=== PATIENT | male | born 1990 | race Caucasian/White ===

== ENCOUNTER 2017-03-29 14:12 | Emergency (ER) | payer SELFPAY ==
[2017-03-29 14:28] VITALS: BP 128/80
[2017-03-29] MEDS ORDERED: Sodium Chloride 0.9% 2.5 ML Syringe FLUSH PRN (14:40)
[2017-03-29] MEDS ORDERED: Ketorolac 30 MG/ML SDV IVPUSH ONE (14:40)
[2017-03-29] MEDS ORDERED: Sodium Chloride 0.9% 10 ML Syringe FLUSH PRN (14:40)
[2017-03-29] MEDS ORDERED: Sodium Chloride 0.9% 1,000 ML IV ONE (14:40)
[2017-03-29] MEDS ORDERED: Ondansetron 4 MG/2 ML SDV IVPUSH ONE (14:40)
--- NOTE | 2017-03-29 14:52 | EDM.PDOC ---
ED HPI GENERAL MEDICAL PROBLEM - General Chief Complaint: Abdominal Pain Stated Complaint: RT SIDE HURTS Time Seen by Provider: 03/29/17 14:23 - History of Present Illness INITIAL COMMENTS - FREE TEXT/NARRATIVE: HISTORY AND PHYSICAL: History of present illness: The patient is a healthy 27-year-old male with no GI history and no abdominal surgical history who presents with onset of left lower quadrant pain that started at 9:00 last evening. The patient says he has a history of constipation and only has a bowel movement once a week which is his norm he's never had black or bloody stools. He has no history of GI problems nor does his family have any bowel history. He said he had a normal day yesterday and normally eats on the go and was having a normal evening when the pain started. He said it was sharp and localized left lower abdomen and did not radiate. He did not have any nausea vomiting or diarrhea at this time but he did not eat much afterwards and this morning he woke up and had several episodes of watery diarrhea which had stool with some blood in it but was not grossly bloody or black and also had vomiting which was clear with some food particles and then had streaks of blood but not grossly black or bloody. The patient says that he has no right-sided abdominal pain no upper abdominal pain and did not take any [id number] medications for this problem. He has not had anything to eat or drink today due to these issues. Patient has not had a fever or upper respiratory symptoms and has no urinary complaints Review of systems: As per history of present illness and below otherwise all systems reviewed and negative. Past medical history: As per history of present illness and as reviewed below otherwise noncontributory. Surgical history: As per history of present illness and as reviewed below otherwise noncontributory. Social history: No reported history of drug or alcohol abuse. Family history: As per history of present illness and as reviewed below otherwise noncontributory. Physical exam: Gen.: Well-developed well-nourished thin man who is nontoxic and vital signs have been reviewed by me. He is laying supine and taxing on the telephone without overt distress HEENT: Atraumatic, normocephalic, negative for conjunctival pallor or scleral icterus, mucous membranes very tacky, throat clear, neck supple, nontender, trachea midline. Lungs: Clear to auscultation, breath sounds equal bilaterally, chest nontender. Heart: S1S2, regular, negative for clicks, rubs, or JVD. Abdomen: Soft, nondistended, he has hypoactive bowel sounds but his abdomen is scaphoid. He has tympany on percussion throughout the abdomen without rebound or guarding. There is moderate tenderness on palpation in the left lower quadrant without right-sided tenderness. Negative for masses or hepatosplenomegaly. Negative for costovertebral tenderness. Pelvis: Stable nontender. Genitourinary: Deferred. Rectal: Deferred. Extremities: Atraumatic, negative for cords or calf pain. Neurovascular unremarkable. Neuro: Awake, alert, oriented. Cranial nerves II through XII unremarkable. Cerebellum unremarkable. Motor and sensory unremarkable throughout. Exam nonfocal. Diagnostics: CBC CMP amylase lipase UA CT scan of the abdomen and pelvis Therapeutics: IVF fluids Zofran Toradol Patient feels much improved here and has had no nausea vomiting or diarrhea since arrival. I discussed with him all of his testing findings and the need of [id number] gas preps to relinquish some of his gas and I will prescribe him Zofran and Bentyl as well for his current symptoms. I've advised close monitoring of his symptoms and follow-up in our clinic for reevaluation and further care. Impression: Left lower abdominal pain/diarrhea/vomiting improved Definitive disposition and diagnosis as appropriate pending reevaluation and review of above. left flank and lower quad abd Pain Score (Numeric/FACES): 8 - Related Data Allergies Allergy/AdvReac Type Severity Reaction Status Date / Time No Known Allergies Allergy Verified 03/29/17 14:26 Home Meds: Home Meds . [No Known Home Meds] 08/29/14 [History] Past Medical History - Past Health History Medical/Surgical History: Denies Medical/Surgical History Other Neuro History: pt reports history of a one time seizure in 2012. pt did not follow up and has had no further incidence. Social & Family History - Family History Family Medical History: Noncontributory - Tobacco Use Smoking Status *Q: Current Every Day Smoker Years of Tobacco use: 7 Packs/Tins Daily: 1 - Alcohol Use Days Per Week of Alcohol Use: 7 Number of Drinks Per Day: 18 Total Drinks Per Week: 126 - Recreational Drug Use Recreational Drug Use: No ED ROS GENERAL - Review of Systems Review Of Systems: ROS reveals no pertinent complaints other than HPI. ED EXAM, GENERAL - Physical Exam Exam: See Below (see dictation) Course - Vital Signs Last Recorded V/S: Last Vital Signs Temp 36.8 C 03/29/17 14:26 Pulse 102 H 03/29/17 14:26 Resp 18 03/29/17 14:26 BP 128/80 03/29/17 14:26 Pulse Ox 100 03/29/17 14:26 - Orders/Labs/Meds Orders: Active Orders 24 hr Category Date Time Status Communication Order [RC] STAT Care 03/29/17 14:39 Active Sodium Chloride 0.9% [Saline Flush] Med 03/29/17 14:40 Active 10 ml FLUSH ASDIRECTED PRN Sodium Chloride 0.9% [Saline Flush] Med 03/29/17 14:40 Active 2.5 ml FLUSH ASDIRECTED PRN Saline Lock Insert [OM.PC] Stat Oth 03/29/17 14:39 Ordered Medication Orders Sodium Chloride (Saline Flush) 10 ml FLUSH ASDIRECTED PRN PRN Reason: Keep Vein Open Last Admin: 03/29/17 14:48 Dose: 10 ml Sodium Chloride (Saline Flush) 2.5 ml FLUSH ASDIRECTED PRN PRN Reason: Keep Vein Open Last Admin: 03/29/17 14:48 Dose: 2.5 ml Labs: Laboratory Tests 03/29/17 03/29/17 03/29/17 Range/Units 14:25 14:25 14:25 WBC 11.84 H (4.0-11.0) K/uL RBC 5.44 (4.50-5.90) M/uL Hgb 16.7 (13.0-17.0) g/dL Hct 49.7 (38.0-50.0) % MCV 91.4 (80.0-98.0) fL MCH 30.7 (27.0-32.0) pg MCHC 33.6 (31.0-37.0) g/dL RDW Std Deviation 46.9 (28.0-62.0) fl RDW Coeff of Hi 14 (11.0-15.0) % Plt Count 243 (150-400) K/uL MPV 9.50 (7.40-12.00) fL Neut % (Auto) 76.6 (48.0-80.0) % Lymph % (Auto) 14.1 L (16.0-40.0) % [place] % (Auto) 7.7 (0.0-15.0) % Eos % (Auto) 1.4 (0.0-7.0) % Baso % (Auto) 0.2 (0.0-1.5) % Neut # (Auto) 9.1 H (1.4-5.7) K/uL Lymph # (Auto) 1.7 (0.6-2.4) K/uL [place] # (Auto) 0.9 H (0.0-0.8) K/uL Eos # (Auto) 0.2 (0.0-0.7) K/uL Baso # (Auto) 0.0 (0.0-0.1) K/uL Nucleated RBC % 0.0 /100WBC Nucleated RBCs # 0 K/uL Sodium 138 (136-146) mmol/L Potassium 4.5 (3.5-5.1) mmol/L Chloride 102 (98-110) mmol/L Carbon Dioxide 28 (21-31) mmol/L BUN 16 (6.0-23.0) mg/dL Creatinine 1.1 (0.6-1.5) mg/dL Est Cr Clr Drug Dosing 97.93 mL/min Estimated GFR (MDRD) > 60.0 ml/min Glucose 84 (60-110) mg/dL Calcium 10.0 (8.8-10.8) mg/dL Total Bilirubin 0.5 (0.1-1.5) mg/dL AST 16 (5-40) IU/L ALT 17 (8-54) IU/L Alkaline Phosphatase 82 (40-150) Total Protein 7.6 (6.0-8.0) g/dL Albumin 4.5 (3.5-5.0) g/dL Globulin 3.1 (2.0-3.5) g/dL Albumin/Globulin Ratio 1.5 (1.3-2.8) Amylase 61 (10-90) U/L Lipase 15 (7-80) U/L Urine Color Urine Appearance Urine pH (5.0-8.0) Ur Specific [place] (1.001-1.035) Urine Protein (NEGATIVE) mg/dL Urine Glucose (UA) (NEGATIVE) mg/dL Urine Ketones (NEGATIVE) mg/dL Urine Occult Blood (NEGATIVE) Urine Nitrite (NEGATIVE) Urine Bilirubin (NEGATIVE) Urine Urobilinogen (<2.0) EU/dL Ur Leukocyte Esterase (NEGATIVE) Urine RBC (0-2/HPF) Urine WBC (0-5/HPF) Ur Epithelial Cells (NONE-FEW) Urine Bacteria (NEGATIVE) 03/29/17 Range/Units 14:28 WBC (4.0-11.0) K/uL RBC (4.50-5.90) M/uL Hgb (13.0-17.0) g/dL Hct (38.0-50.0) % MCV (80.0-98.0) fL MCH (27.0-32.0) pg MCHC (31.0-37.0) g/dL RDW Std Deviation (28.0-62.0) fl RDW Coeff of Hi (11.0-15.0) % Plt Count (150-400) K/uL MPV (7.40-12.00) fL Neut % (Auto) (48.0-80.0) % Lymph % (Auto) (16.0-40.0) % [place] % (Auto) (0.0-15.0) % Eos % (Auto) (0.0-7.0) % Baso % (Auto) (0.0-1.5) % Neut # (Auto) (1.4-5.7) K/uL Lymph # (Auto) (0.6-2.4) K/uL [place] # (Auto) (0.0-0.8) K/uL Eos # (Auto) (0.0-0.7) K/uL Baso # (Auto) (0.0-0.1) K/uL Nucleated RBC % /100WBC Nucleated RBCs # K/uL Sodium (136-146) mmol/L Potassium (3.5-5.1) mmol/L Chloride (98-110) mmol/L Carbon Dioxide (21-31) mmol/L BUN (6.0-23.0) mg/dL Creatinine (0.6-1.5) mg/dL Est Cr Clr Drug Dosing mL/min Estimated GFR (MDRD) ml/min Glucose (60-110) mg/dL Calcium (8.8-10.8) mg/dL Total Bilirubin (0.1-1.5) mg/dL AST (5-40) IU/L ALT (8-54) IU/L Alkaline Phosphatase (40-150) Total Protein (6.0-8.0) g/dL Albumin (3.5-5.0) g/dL Globulin (2.0-3.5) g/dL Albumin/Globulin Ratio (1.3-2.8) Amylase (10-90) U/L Lipase (7-80) U/L Urine Color YELLOW Urine Appearance CLEAR Urine pH 6.0 (5.0-8.0) Ur Specific [place] 1.025 (1.001-1.035) Urine Protein NEGATIVE (NEGATIVE) mg/dL Urine Glucose (UA) NEGATIVE (NEGATIVE) mg/dL Urine Ketones TRACE H (NEGATIVE) mg/dL Urine Occult Blood NEGATIVE (NEGATIVE) Urine Nitrite NEGATIVE (NEGATIVE) Urine Bilirubin NEGATIVE (NEGATIVE) Urine Urobilinogen 0.2 (<2.0) EU/dL Ur Leukocyte Esterase NEGATIVE (NEGATIVE) Urine RBC 1-2 (0-2/HPF) Urine WBC 1-2 (0-5/HPF) Ur Epithelial Cells OCCASIONAL (NONE-FEW) Urine Bacteria RARE (NEGATIVE) Meds: Medications Generic Name Dose Route Start Last Admin Trade Name [place] PRN Reason Stop Dose Admin Sodium Chloride 10 ml 03/29/17 14:40 03/29/17 14:48 Saline Flush FLUSH 10 ml ASDIRECTED PRN Administration Keep Vein Open Sodium Chloride 2.5 ml 03/29/17 14:40 03/29/17 14:48 Saline Flush FLUSH 2.5 ml ASDIRECTED PRN Administration Keep Vein Open Discontinued Medications Generic Name Dose Route Start Last Admin Trade Name Freq PRN Reason Stop Dose Admin Sodium Chloride 1,000 mls @ 999 mls/hr 03/29/17 14:40 03/29/17 14:47 Normal Saline IV 03/29/17 15:40 999 mls/hr STAT ONE Administration Iopamidol 100 ml 03/29/17 14:59 03/29/17 15:00 Isovue Multipack-370 (76%) IVPUSH 03/29/17 15:00 100 ml ONETIME STA Administration Ketorolac Tromethamine 30 mg 03/29/17 14:40 03/29/17 14:47 Toradol IVPUSH 03/29/17 14:41 30 mg ONETIME ONE Administration Ondansetron HCl 4 mg 03/29/17 14:40 03/29/17 14:47 Zofran IVPUSH 03/29/17 14:41 4 mg ONETIME ONE Administration Departure - Departure Time of Disposition: 16:28 Disposition: Home, Self-Care 01 Condition: Good Clinical Impression: Abdominal pain Qualifiers: Abdominal location: left lower quadrant Qualified Code(s): R10.32 - Left lower quadrant pain Diarrhea Qualifiers: Diarrhea type: unspecified type Qualified Code(s): R19.7 - Diarrhea, unspecified Vomiting Qualifiers: Vomiting type: unspecified Vomiting Intractability: non-intractable Nausea presence: with nausea Qualified Code(s): R11.2 - Nausea with vomiting, unspecified - Discharge Information Referrals: PCP,None [Primary Care Provider] - Forms: ED Department Discharge Additional Instructions: The following information is given to patients seen in the emergency department who are being discharged to home. This information is to outline your options for follow-up care. We provide all patients seen in our emergency department with a follow-up referral. The need for follow-up, as well as the timing and circumstances, are variable depending upon the specifics of your emergency department visit. If you don't have a primary care physician on staff, we will provide you with a referral. We always advise you to contact your personal physician following an emergency department visit to inform them of the circumstance of the visit and for follow-up with them and/or the need for any referrals to a consulting specialist. The emergency department will also refer you to a specialist when appropriate. This referral assures that you have the opportunity for followup care with a specialist. All of these measure are taken in an effort to provide you with optimal care, which includes your followup. Under all circumstances we always encourage you to contact your private physician who remains a resource for coordinating your care. When calling for followup care, please make the office aware that this follow-up is from your recent emergency room visit. If for any reason you are refused follow-up, please contact the [facility] emergency department at and ask to speak to the emergency department charge nurse. [facility] Primary care- Internal Medicine and Family [place] [id number] [place] [address] Push sips of fluids such as Gatorade and water and avoid caffeine and alcohol and fatty/fast foods. Please eat bland diet for the next 24 hours. Use over-the- counter gas preparation to assist with gastric retention and also use prescribed medications, Zofran and Bentyl, as needed. Return to ER as needed and as discussed. Please contact our clinic for follow-up appointment in the next few days for reevaluation and further care - My Orders Last 24 Hours: My Active Orders 03/29/17 14:39 Communication Order [RC] STAT Saline Lock Insert [OM.PC] Stat 03/29/17 14:40 Sodium Chloride 0.9% [Saline Flush] 10 ml FLUSH ASDIRECTED PRN Sodium Chloride 0.9% [Saline Flush] 2.5 ml FLUSH ASDIRECTED PRN - Assessment/Plan Last 24 Hours: My Active Orders 03/29/17 14:39 Communication Order [RC] STAT Saline Lock Insert [OM.PC] Stat 03/29/17 14:40 Sodium Chloride 0.9% [Saline Flush] 10 ml FLUSH ASDIRECTED PRN Sodium Chloride 0.9% [Saline Flush] 2.5 ml FLUSH ASDIRECTED PRN
[2017-03-29] MEDS ORDERED: Iopamidol 755 MG/ML 500 ML Multipack Bottle IVPUSH STA (14:59)
[2017-03-29 15:02] LABS: CHLORIDE,CL 102 mmol/L (98-110); SODIUM,NA 138 mmol/L (136-146)
--- NOTE | 2017-03-29 15:49 | CT ---
CT of the abdomen and pelvis with contrast. HISTORY: Pain TECHNIQUE: Axial CT images were obtained of the abdomen and pelvis following administration of 100 mL of Isovue-370 without complication. Coronal and sagittal reconstructions obtained. FINDINGS: The lung bases are clear, no pleural effusion. There is focal fatty infiltration near the falciform ligament. The spleen, adrenal glands, and pancre as appear normal. The gallbladder is normal. No bulky retroperitoneal lymphadenopathy or abdominal as cites. The kidneys enhance and function symmetrically without evidence of obstructive uropathy. Punctate non obstructing left renal stones. The large and small bowel are normal in caliber without evidence of obstruction. The appendix appear s normal. There is possibly a trace free pelvic fluid. No bulky pelvic lymphadenopathy. Urinary bladd er appears normal. IMPRESSION: 1. No definite acute finding within the abdomen or pelvis. 2. Possible nonspecific trace free pelvic fluid. 3. Punctate nonobstructing left nephrolithiasis.
== END 2017-03-29 16:38 | disposition home or self-care (01) ==
LOC: MW.ED 14:12
DX: R10.32 Left lower quadrant pain (principal); R19.7 Diarrhea, unspecified; R11.2 Nausea with vomiting, unspecified; F17.210 Nicotine dependence, cigarettes, uncomplicated
CPT/HCPCS: 74177; 80053; 81001; 82150; 83690; 85025; 96361; 96374; 99284; J1885; J2405; J7040; Q9967

== ENCOUNTER 2018-05-13 16:42 | Emergency (ER) | payer MEDICAID ==
--- NOTE | 2018-05-13 17:42 | EDM.PDOC ---
ED HPI GENERAL MEDICAL PROBLEM - General Chief Complaint: Genitourinary Problem Stated Complaint: STD CHECK Time Seen by Provider: 05/13/18 17:23 - History of Present Illness INITIAL COMMENTS - FREE TEXT/NARRATIVE: HISTORY AND PHYSICAL: History of present illness: Patient is a 28 year old who presents to the ED today with "wanting to be checked " for STDs. He states that his girlfriend is being checked so he would also like to be evaluated. Patient is asymptomatic. He denies any fever, chills , chest pain, shortness of breath or cough. Denies any GI or symptoms. Denies any testicular erythema, lesions or soft tissue swelling. Denies any penile drainage Review of systems: As per history of present illness and below otherwise all systems reviewed and negative. Past medical history: As per history of present illness and as reviewed below otherwise noncontributory. Surgical history: As per history of present illness and as reviewed below otherwise noncontributory. Social history: See social history for further information Family history: As per history of present illness and as reviewed below otherwise noncontributory. Physical exam: General: Patient is alert, oriented, and in no acute distress. He is sitting comfortably on exam table. HEENT: Atraumatic, normocephalic, pupils equal and reactive bilaterally, negative for conjunctival pallor or scleral icterus, mucous membranes moist, TMs normal bilaterally, throat clear, neck supple, nontender, trachea midline. No drooling or trismus noted. No meningeal signs. No hot potato voice noted. Lungs: Clear to auscultation, breath sounds equal bilaterally, chest nontender. Heart: S1S2, regular rate and rhythm without overt murmur Abdomen: Soft, nondistended, nontender. Negative for masses or hepatosplenomegaly. Negative for costovertebral tenderness. Pelvis: Stable nontender. Genitourinary: Deferred. Rectal: Deferred. Skin: Intact, warm, dry. No lesions or rashes noted. Extremities: Atraumatic, negative for cords or calf pain. Neurovascular unremarkable. Neuro: Awake, alert, oriented. Cranial nerves II through XII unremarkable. Cerebellum unremarkable. Motor and sensory unremarkable throughout. Exam nonfocal. Notes: Gonorrhea and may be were ordered. We will call patient with results on these return. He has no symptoms at this time. UA today is negative. We discussed empiric treatment versus waiting for results and he agrees to waiting for results to return for treatment. Supportive care measures were reviewed and discussed. Voices understanding and is agreeable to plan of care. Denies any further questions or concerns at this time. Did discuss that if patient does desire for STD screening to follow-up with [facility] in order to perform these tests. Proper number to call with results is [phone]. Diagnostics: Gonorrhea and chlamydia Therapeutics: none Prescription: none Impression: 1. Screening for sexually transmitted infection Plan: 1. The results of tests do not come back for a couple of days. In the meantime, refrain from sexual intercourse. 2. We will call you with the results 3. Follow-up with [facility] your primary care provider for full STD screening. Definitive disposition and diagnosis as appropriate pending reevaluation and review of above. - Related Data Allergies Allergy/AdvReac Type Severity Reaction Status Date / Time No Known Allergies Allergy Verified 05/13/18 17:20 Home Meds: Home Meds . [No Known Home Meds] 08/29/14 [History] Past Medical History - Past Health History Medical/Surgical History: Denies Medical/Surgical History Other Neuro History: pt reports history of a one time seizure in 2011. pt did not follow up and has had no further incidence. Social & Family History - Family History Family Medical History: Noncontributory - Tobacco Use Smoking Status *Q: Current Every Day Smoker Years of Tobacco use: 9 Packs/Tins Daily: 1 - Recreational Drug Use Recreational Drug Use: No ED ROS GENERAL - Review of Systems Review Of Systems: ROS reveals no pertinent complaints other than HPI. ED EXAM, GENERAL - Physical Exam Exam: See Below (See dictation) Course - Vital Signs Last Recorded V/S: Last Vital Signs Temp 98.6 F 05/13/18 17:18 Pulse 89 05/13/18 17:57 Resp 16 05/13/18 17:57 BP 128/79 05/13/18 17:57 Pulse Ox 97 05/13/18 17:57 - Orders/Labs/Meds Orders: Active Orders 24 hr Category Date Time Status CHLAMYDIA AND GONORRHEA BY TMA Stat Lab 05/13/18 17:25 Received Labs: Laboratory Tests 05/13/18 Range/Units 17:25 Urine Color YELLOW Urine Appearance CLEAR Urine pH 5.5 (5.0-8.0) Ur Specific [place] <= 1.005 (1.001-1.035) Urine Protein NEGATIVE (NEGATIVE) mg/dL Urine Glucose (UA) NEGATIVE (NEGATIVE) mg/dL Urine Ketones NEGATIVE (NEGATIVE) mg/dL Urine Occult Blood NEGATIVE (NEGATIVE) Urine Nitrite NEGATIVE (NEGATIVE) Urine Bilirubin NEGATIVE (NEGATIVE) Urine Urobilinogen 0.2 (<2.0) EU/dL Ur Leukocyte Esterase NEGATIVE (NEGATIVE) Departure - Departure Time of Disposition: 17:43 Disposition: Home, Self-Care 01 Clinical Impression: Screening for STD (sexually transmitted disease) - Discharge Information Instructions: Sexually Transmitted Disease, [id number] Referrals: PCP,None [Primary Care Provider] - Forms: ED Department Discharge Additional Instructions: The following information is given to patients seen in the emergency department who are being discharged to home. This information is to outline your options for follow-up care. We provide all patients seen in our emergency department with a follow-up referral. The need for follow-up, as well as the timing and circumstances, are variable depending upon the specifics of your emergency department visit. If you don't have a primary care physician on staff, we will provide you with a referral. We always advise you to contact your personal physician following an emergency department visit to inform them of the circumstance of the visit and for follow-up with them and/or the need for any referrals to a consulting specialist. The emergency department will also refer you to a specialist when appropriate. This referral assures that you have the opportunity for follow-up care with a specialist. All of these measure are taken in an effort to provide you with optimal care, which includes your follow-up. Under all circumstances we always encourage you to contact your private physician who remains a resource for coordinating your care. When calling for follow-up care, please make the office aware that this follow-up is from your recent emergency room visit. If for any reason you are refused follow-up, please contact the [facility] Emergency Department at and asked to speak to the emergency department charge nurse. [facility] Primary Care [address] [place] [id number] [facility] [address] [place] [address] 1. The results of tests do not come back for a couple of days. In the meantime, refrain from sexual intercourse. 2. We will call you with the results 3. Follow-up with [facility] your primary care provider for full STD screening. - My Orders Last 24 Hours: My Active Orders 05/13/18 17:25 CHLAMYDIA AND GONORRHEA BY TMA Stat - Assessment/Plan Last 24 Hours: My Active Orders 05/13/18 17:25 CHLAMYDIA AND GONORRHEA BY TMA Stat
[2018-05-13 17:57] VITALS: BP 128/79
== END 2018-05-13 17:57 | disposition home or self-care (01) ==
LOC: MW.ED 16:42
DX: Z11.3 Encounter for screening for infections with a predominantly sexual mode of transmission (principal); F17.210 Nicotine dependence, cigarettes, uncomplicated
CPT/HCPCS: 81003; 87491; 87591; 99282; 99283

== ENCOUNTER 2021-10-24 13:29 | Emergency (ER) | payer MEDICAID ==
[2021-10-24] MEDS ORDERED: Diphtheria,Pertussis(Acell),Tetanus Vaccine 0.5 ML Syringe IM ONE (13:37)
[2021-10-24 13:43] VITALS: BP 134/76; PULSE 77
== END 2021-10-24 14:44 | disposition home or self-care (01) ==
LOC: MW.ED 13:29
DX: S62.663A Nondisplaced fracture of distal phalanx of left middle finger, initial encounter for closed fracture (principal); Z23 Encounter for immunization; W23.1XXA Caught, crushed, jammed, or pinched between stationary objects, initial encounter
CPT/HCPCS: 73140-26-LT; 73140-LT; 90471; 90715; 99283; 99283-25

== ENCOUNTER 2022-08-10 03:41 | Emergency (ER) | payer MEDICAID ==
[2022-08-10] MEDS ORDERED: Sodium Chloride 0.9% 10 ML Syringe FLUSH PRN (03:47)
[2022-08-10] MEDS ORDERED: Thiamine 200 MG/2 ML MDV IVPUSH ONE (03:47)
[2022-08-10] MEDS ORDERED: Sodium Chloride 0.9% 20 ML SDV IV PRN (03:47)
[2022-08-10] MEDS ORDERED: Sodium Chloride 0.9% 2.5 ML Syringe FLUSH PRN (03:47)
[2022-08-10 03:53] LABS: BASOPHILS PERCENT AUTO 0.3 % (0.0-1.5); EOSINOPHILS ABSOLUTE AUTO 0.1 K/uL (0.0-0.7); EOSINOPHILS PERCENT AUTO 0.6 % (0.0-7.0); HEMOGLOBIN 15.1 g/dL (13.0-17.0); LYMPHOCYTES ABSOLUTE AUTO 1.1 K/uL (0.6-2.4); LYMPHOCYTES PERCENT AUTO 10.7 % (16.0-40.0); MEAN CORPUSCULAR HEMOGLOBIN 30.1 pg (27.0-32.0); MEAN CORPUSCULAR HGB CONC 34.3 g/dL (31.0-37.0); MEAN CORPUSCULAR VOLUME 87.6 fL (80.0-98.0); MONOCYTES ABSOLUTE AUTO 0.8 K/uL (0.0-0.8); MONOCYTES PERCENT AUTO 7.7 % (0.0-15.0); NEUTROPHILS ABSOLUTE AUTO 8.2 K/uL (1.4-5.7); NEUTROPHILS PERCENT AUTO 80.7 % (48.0-80.0); NRBC ABSOLUTE 0 K/uL; PLATELET COUNT,PLT 198 K/uL (150-400); RED BLOOD CELL COUNT 5.02 M/uL (4.50-5.90)
[2022-08-10] MEDS ORDERED: Sodium Chloride 0.9% 1,000 ML IV SCH (04:00)
[2022-08-10 04:16] LABS: A/G RATIO 1.3 (0.9-1.6); ALANINE AMINOTRANSFERASE,ALT 26 IU/L (14-63); ALBUMIN 3.8 g/dL (3.4-5.0); ALKALINE PHOSPHATASE 74 U/L (46-116); ASPARTATE AMNIOTRANSFERASE,AST 19 IU/L (15-37); BILIRUBIN TOTAL 0.4 mg/dL (0.2-1.0); BLOOD UREA NITROGEN,BUN 19 mg/dL (7.0-18.0); CARBON DIOXIDE,CO2 26.9 mmol/L (21.0-32.0); CHLORIDE,CL 109 mmol/L (98-107); CREATININE 1.2 mg/dL (0.8-1.3); ETHANOL BLOOD MEDICAL 4 mg/dL; GLUCOSE RANDOM 96 mg/dL (74-106); PROTEIN TOTAL,TP 6.8 g/dL (6.4-8.2); SODIUM,NA 144 mmol/L (136-148)
[2022-08-10 04:19] LABS: ESTIMATED GFR 83 mL/min (>60)
[2022-08-10 05:25] VITALS: BP 153/99; PULSE 100
== END 2022-08-10 05:30 ==
LOC: MW.ED 03:41
DX: F19.929 Other psychoactive substance use, unspecified with intoxication, unspecified (principal)
CPT/HCPCS: 36415; 70450; 71045; 80053; 80307; 82947; 85025; 96361; 96374; 99285; J3411; J3490; J7030

== ENCOUNTER 2022-08-17 19:10 | Emergency (ER) | payer MEDICAID ==
[2022-08-17 20:00] VITALS: BP 123/66; PULSE 92
== END 2022-08-17 20:17 | disposition home or self-care (01) ==
LOC: MW.ED 19:10
DX: K04.7 Periapical abscess without sinus (principal); K01.1 Impacted teeth
CPT/HCPCS: 99282